=== PATIENT | male | born 1965 | race Caucasian/White ===

== ENCOUNTER 2018-04-04 22:16 | Emergency (ER) | payer OTHER ==
[~2018-04-04] VITALS: Ht 162.6 cm; Wt 65.8 kg
[~2018-04-04 22:16] MED LIST: AMIT25; AMOCLA875 PO; ASPI325; ASPI325EC PO; CAPHYD; CEPH500 PO; CLOP75 PO; CYCL10 PO; ENAL2.5 PO; ENAL5; ERGO400 PO; EZET10; EZET10 PO; FAMO20 PO; FENO145 PO; FENO54; HYDACE5; HYDACE5 PO; HYDCHL25; HYDCHL25 PO; LANS15EC PO; MED MARIJUANA; METO10 PO; METO100ER PO; METO50ER; NYST100TC TOP; OMEP20ER; OMEP20ER PO; OXYACE5T PO; PIOG30; PIOG45 PO; PRAV10 PO; PROCODE120 PO; PROM25 PO; Percocet 7.5-31 EACH PO; RANI150; RANI150 PO; RXHYD5325 PO; RXHYDACE PO; SUCR1 PO; SULTRIDS PO; WATER PILL; [UNRECOGNIZED DRUG - REMARK]; [UNRECOGNIZED DRUG - REMARK]; [UNRECOGNIZED DRUG - REMARK]; [UNRECOGNIZED DRUG - REMARK]
[2018-04-04] MEDS ORDERED: Valium2 MG PO (23:40)
[2018-04-04] MEDS ORDERED: LIDO700A20 TOP (23:40)
[2018-04-04] MEDS ORDERED: Percocet 7.5-31 EACH PO (23:40)
[2018-04-04] MEDS ORDERED: Pepcid40 MG PO (23:40)
== END 2018-04-04 23:55 | disposition home or self-care (01) ==
LOC: ER 22:16
DX: S22.059D Unspecified fracture of T5-T6 vertebra, subsequent encounter for fracture with routine healing (principal); S22.089D Unspecified fracture of T11-T12 vertebra, subsequent encounter for fracture with routine healing; I10 Essential (primary) hypertension; E11.9 Type 2 diabetes mellitus without complications; E78.5 Hyperlipidemia, unspecified; Z88.8 Allergy status to other drugs, medicaments and biological substances; Z79.899 Other long term (current) drug therapy
CPT/HCPCS: 99283

== ENCOUNTER 2021-03-03 14:01 | Inpatient (IN) | payer OTHER ==
[~2021-03-03] VITALS: Ht 162.6 cm; Wt 66.0 kg
[~2021-03-03 14:01] MED LIST changes: +LIDO700A20 TOP; +Pepcid40 MG PO; +Valium2 MG PO
[2021-03-03] MEDS ORDERED: Aspir 8181 MG PO (14:34)
[2021-03-03 14:48] LABS: BASOPHILS ABSOLUTE AUTO 0.12 K/mm3 (0.00-0.23); BASOPHILS PERCENT AUTO 1 % (0-2); EOSINOPHILS ABSOLUTE AUTO 0.26 K/mm3 (0.00-0.68); EOSINOPHILS PERCENT AUTO 3 % (0-6); Hematocrit 48.9 % (37.0-53.0); Hemoglobin 16.3 g/dL (13.5-17.5); IMMATURE GRAN ABSOLUTE AUTO 0.03 K/mm3 (0.00-0.10); IMMATURE GRAN PERCENT AUTO 0 % (0-1); LYMPHOCYTES PERCENT AUTO 19 % (21-46); MONOCYTES ABSOLUTE AUTO 0.94 K/mm3 (0.16-1.47); MONOCYTES PERCENT AUTO 10 % (4-13); Mean Corpuscular HGB 29.3 pg (26.0-34.0); Mean Corpuscular HGB Conc 33.3 g/dL (31.5-36.5); Mean Corpuscular Volume 88 fL (80-100); Mean Platelet Volume 11.9 fL (9.1-12.4); NEUTROPHILS ABSOLUTE AUTO 6.59 K/mm3 (1.96-9.15); NEUTROPHILS PERCENT AUTO 67 % (41-73); Platelet Count 278 K/mm3 (150-400); RDW Coefficient Variation 14.8 % (11.7-14.2); Red Blood Cell Count 5.57 M/mm3 (4.30-5.90); White Blood Cell Count 9.84 K/mm3 (4.00-11.30)
[2021-03-03] MEDS ORDERED: LISI5 PO (15:45)
[2021-03-03 15:58] LABS: Alanine Aminotransfer (ALT/SGP 33 U/L (12-78); Albumin, Blood 2.8 g/dL (3.4-5.0); Albumin/Globulin Ratio 0.8 (0.8-1.8); Alk Phos 77 U/L (50-136); Anion Gap 7 mmol/L (6-16); Aspartate Aminotrans (AST/SGOT 25 U/L (12-37); Bilirubin, Total 0.7 mg/dL (0.1-1.0); Blood Urea Nitrogen 11 mg/dL (8-24); Bun/Creatinine Ratio 10.9 (12.0-20.0); CO2, Blood 24 mmol/L (21-32); Chloride, Blood 108 mmol/L (98-108); Creatinine, Blood 1.01 mg/dL (0.60-1.20); Ethanol (Alcohol), Blood, Med <3 mg/dL; Globulin, Blood 3.4 g/dL (2.2-4.0); Glomerular Filtration Rate >60 (60-); Glucose, Blood 82 mg/dL (70-99); HDL Cholesterol 32 mg/dL (>39); LDL Direct Measurement 154 mg/dL (0-130); Potassium, Blood 3.4 mmol/L (3.5-5.5); Sodium, Blood 139 mmol/L (136-145); Total Protein, Blood 6.2 g/dL (6.4-8.2)
--- NOTE | 2021-03-03 18:46 | NUR ---
SHIFT SUMMARY. PATIENT IS ALERT AND ORIENTED X3. PATIENT WAS ADMITTED FOR A CVA AND LEFT SIDED WEAKNESS. PATIENT WAS ADMITTED AROUND 1730. PATIENT HAS HAD ADMISSION DONE AND HAS BEEN ORIENTED TO ROOM AND CALL LIGHT. PATIENT IS CURRENTLY RESTING IN ROOM. VITAL SIGNS REVIEWED. WILL CONTINUE TO MONITOR UNTIL SHIFT CHANGE.
[2021-03-04 04:59] LABS: BASOPHILS PERCENT AUTO 1 % (0-2); EOSINOPHILS ABSOLUTE AUTO 0.36 K/mm3 (0.00-0.68); EOSINOPHILS PERCENT AUTO 4 % (0-6); Hemoglobin 16.8 g/dL (13.5-17.5); IMMATURE GRAN ABSOLUTE AUTO 0.02 K/mm3 (0.00-0.10); IMMATURE GRAN PERCENT AUTO 0 % (0-1); LYMPHOCYTES ABSOLUTE AUTO 1.98 K/mm3 (0.84-5.20); LYMPHOCYTES PERCENT AUTO 24 % (21-46); MONOCYTES ABSOLUTE AUTO 0.85 K/mm3 (0.16-1.47); MONOCYTES PERCENT AUTO 10 % (4-13); Mean Corpuscular HGB 29.1 pg (26.0-34.0); Mean Corpuscular HGB Conc 33.6 g/dL (31.5-36.5); Mean Corpuscular Volume 87 fL (80-100); Mean Platelet Volume 11.2 fL (9.1-12.4); NEUTROPHILS ABSOLUTE AUTO 5.03 K/mm3 (1.96-9.15); NEUTROPHILS PERCENT AUTO 60 % (41-73); Platelet Count 247 K/mm3 (150-400); RDW Coefficient Variation 14.7 % (11.7-14.2); RDW Standard Deviation 47.1 fL (35.1-46.3); Red Blood Cell Count 5.77 M/mm3 (4.30-5.90); White Blood Cell Count 8.34 K/mm3 (4.00-11.30)
--- NOTE | 2021-03-04 05:26 | NUR ---
Pt AAOx3, denies pain, SOB, or other discomforts. Pt calls appropriately. Pt sleeping most of shift with no signs of symptoms of discomfort. Pt NPO for swallow eval. Pt has no defecits neurologically, tele is SR/ST Plan: NPO for swallow eval. Pt also to have ECHO, CTA of head and neck.
[2021-03-04 05:28] LABS: Anion Gap 9 mmol/L (6-16); Blood Urea Nitrogen 12 mg/dL (8-24); CO2, Blood 25 mmol/L (21-32); Calcium, Blood 9.6 mg/dL (8.5-10.1); Chloride, Blood 105 mmol/L (98-108); Glomerular Filtration Rate >60 (60-); Glucose, Blood 76 mg/dL (70-99); Potassium, Blood 3.5 mmol/L (3.5-5.5); Sodium, Blood 139 mmol/L (136-145)
--- NOTE | 2021-03-04 17:04 | NUR ---
PATIENT TRANSPORTED OFF OF UNIT VIA STRETCHER FOR CT SCAN NO COMPLICATIONS PRIOR TO OR AT TIME OF TRANSPORT
--- NOTE | 2021-03-04 17:33 | NUR ---
PATIENT RETURNED TO UNIT/ROOM ASSISTED BACK TO BED REMAINS ALERT NO C/O PAIN OR DISCMFORT NO S/S DISTRESS NOTED
--- NOTE | 2021-03-05 04:38 | NUR ---
PATIENT IS A&OX3. DENIES PAIN OR DISCOMFORT. COMPLIANT WITH MEDS. ADLS PROVIDED. SAFETY MEASURES IN PLACE. WILL CONTINUE TO MONITOR.
[2021-03-05 05:45] LABS: Albumin, Blood 3.2 g/dL (3.4-5.0); Anion Gap 8 mmol/L (6-16); Blood Urea Nitrogen 15 mg/dL (8-24); Bun/Creatinine Ratio 14.7 (12.0-20.0); CO2, Blood 24 mmol/L (21-32); Calcium, Blood 9.4 mg/dL (8.5-10.1); Chloride, Blood 105 mmol/L (98-108); Creatinine, Blood 1.02 mg/dL (0.60-1.20); Glomerular Filtration Rate >60 (60-); Glucose, Blood 94 mg/dL (70-99); Phosphorus, Blood 2.9 mg/dL (2.5-4.9); Potassium, Blood 3.5 mmol/L (3.5-5.5); Sodium, Blood 137 mmol/L (136-145)
--- NOTE | 2021-03-05 18:53 | NUR ---
a+o, visitor here, call light in reach, saline locked, rm air,compliant with care, will continue to monitor and treat until share bsr with noc nurse
--- NOTE | 2021-03-06 05:34 | NUR ---
Pt is AAOx3, denies pain, SOB, or other discomforts. Pt calls appropriatey, has left sided weakess. BA on for safety. Plan: [facility] POC, family to meet with MD to discuss rat exterminator care.
--- NOTE | 2021-03-06 16:35 | NUR ---
SHIFT SUMMARY NO ACUTE CHANGES THIS SHIFT, A&O, VSS, RA. LEFT SIDED WEAKNESS/FLACCID ARM CONTINUES. PT WORKING c PT/OT. AWAITING IRU APPROVAL/PLACEMENT. PT DENIES ANY PAIN OR DISTRESS. PT BECOMES VERY EMOTIONAL REGARDING CURRENT CONDITION. GOOD ORAL INTAKE, NO PROBLEMS c SWALLOWING NOTED THIS SHIFT. PT IS CURRENTLY RESTING IN BED c CALL LIGHT WITHIN REACH. CALLS APPROPRIATELY.
--- NOTE | 2021-03-07 04:17 | NUR ---
SHIFT SUMMARY RECEIVED PATIENT AWAKE IN BED. PATIENT IS A&OXV. PATIENT IS ON RA, VSS. PATIENT IS MED COMPLIANT.SAFETY MEASURES IN PLACE. WILL CONTINUE TO MONITOR.
--- NOTE | 2021-03-07 18:52 | NUR ---
SHIFT SUMMARY: PT A/O X3 MAX ASSIST WITH TX TO CHAIR. PT FLACC ON LEFT SIDE. PT HAD NO ACUTE CHANGES THIS SHIFT AND PLAN IS TO GO TO SNF.
--- NOTE | 2021-03-08 04:53 | NUR ---
Pt AAOx3, pt denies pain, SOB, or other discomforts. Plan: Discharge to SNF when bed available, encourage pt to wear gait belt and arm sling when ambulating
--- NOTE | 2021-03-08 17:48 | NUR ---
END OF SHIFT SUMMARY: PATIENT DENIED PAIN THROUGHOUT SHIFT. PATIENT UP TO THE BSC WITH STAFF AND WORKED WITH PT AND OT. PATIENT IS VERY INTERACTIVE WITH HIS CARE AND THERAPIES. PATIENT IS EMOTIONAL AND TEARFUL AT TIMES IN REGARDS TO HIS CURRENT SITUATION AND CHANGES. PROVIDED SUPPORT AND ENCOURAGEMENT. PATIENT HAS AN ADEQUATE APPETITE. NO DIFFICULTY SWALLOWING NOTED. PATIENT FOLLOWS COMMANDS AND ANSWERS QUESTIONS APPROPRIATELY.
--- NOTE | 2021-03-09 04:45 | NUR ---
PT IS A&OX4, ABLE TO MAKE NEEDS KNOWN. PT IS MEDICATION COMPLIANT PT IS COMPLIANT WITH MEDS, SAFETY MEASURES IN PLACE. WILL CONTINUE TO MONITOR PATIENT
[2021-03-09 12:24] LABS: SARS-Cov-2 (COVID-19) PCR, MMC POSITIVE (NEGATIVE)
--- NOTE | 2021-03-09 14:13 | NUR ---
dr requested 2nd covid test to verify positive result, ER said they could not test a pt on another floor and suggested redoing the original test
--- NOTE | 2021-03-09 18:44 | NUR ---
pt waiting for pickup [facility], called report and faxed information r/pt, will continue to monitor and treat until either pt is picked up or share report with noc nurse
== END 2021-03-09 19:20 | DRG 64 ==
LOC: ER 14:01 → MEDS 15:57
PROVIDERS: Internal Medicine; Student in an Organized Health Care Education/Training Program; ADMIT Internal Medicine
DX: I63.9 Cerebral infarction, unspecified (principal); U07.1 COVID-19; G81.94 Hemiplegia, unspecified affecting left nondominant side; R64 Cachexia; Q21.1 Atrial septal defect; R29.706 NIHSS score 6; R47.1 Dysarthria and anarthria; R29.810 Facial weakness; I10 Essential (primary) hypertension; F17.210 Nicotine dependence, cigarettes, uncomplicated; F10.11 Alcohol abuse, in remission; I73.9 Peripheral vascular disease, unspecified; E78.5 Hyperlipidemia, unspecified; B18.2 Chronic viral hepatitis C; R91.1 Solitary pulmonary nodule; R73.9 Hyperglycemia, unspecified; S41.112A Laceration without foreign body of left upper arm, initial encounter; X58.XXXA Exposure to other specified factors, initial encounter; Z66 Do not resuscitate; Z95.820 Peripheral vascular angioplasty status with implants and grafts; Z88.8 Allergy status to other drugs, medicaments and biological substances; Z79.82 Long term (current) use of aspirin; Z68.27 Body mass index [BMI] 27.0-27.9, adult
CPT/HCPCS: 36415; 70450; 70496; 70498; 70551; 80048; 80053; 80069; 82947; 83036; 83718; 83721; 85025; 92526; 92610; 93005; 93010; 93306; 97110; 97112; 97162; 97165; 97530; 97535; 99285-25; A9270; G0480; J1650; J2405; Q9967; U0004

== ENCOUNTER → 2021-03-13 | Outpatient (CLI) | payer OTHER ==
[~2021-03-13] MED LIST changes: +Aspir 8181 MG PO; +LIPITOR80 MG PO; +LISI5 PO
[2021-03-13 13:20] LABS: BASOPHILS ABSOLUTE AUTO 0.09 K/mm3 (0.00-0.23); BASOPHILS PERCENT AUTO 1 % (0-2); EOSINOPHILS ABSOLUTE AUTO 0.21 K/mm3 (0.00-0.68); EOSINOPHILS PERCENT AUTO 2 % (0-6); Hematocrit 46.6 % (37.0-53.0); Hemoglobin 15.7 g/dL (13.5-17.5); IMMATURE GRAN ABSOLUTE AUTO 0.03 K/mm3 (0.00-0.10); IMMATURE GRAN PERCENT AUTO 0 % (0-1); LYMPHOCYTES ABSOLUTE AUTO 1.44 K/mm3 (0.84-5.20); LYMPHOCYTES PERCENT AUTO 16 % (21-46); MONOCYTES ABSOLUTE AUTO 0.91 K/mm3 (0.16-1.47); MONOCYTES PERCENT AUTO 10 % (4-13); Mean Corpuscular HGB 29.2 pg (26.0-34.0); Mean Corpuscular HGB Conc 33.7 g/dL (31.5-36.5); Mean Corpuscular Volume 87 fL (80-100); NEUTROPHILS ABSOLUTE AUTO 6.55 K/mm3 (1.96-9.15); NEUTROPHILS PERCENT AUTO 71 % (41-73); Platelet Count 226 K/mm3 (150-400); RDW Coefficient Variation 14.6 % (11.7-14.2); Red Blood Cell Count 5.37 M/mm3 (4.30-5.90); White Blood Cell Count 9.23 K/mm3 (4.00-11.30)
[2021-03-13 13:27] LABS: Mean Platelet Volume 13.4 fL (9.1-12.4)
[2021-03-13 13:53] LABS: Alanine Aminotransfer (ALT/SGP 42 U/L (12-78); Albumin, Blood 3.2 g/dL (3.4-5.0); Albumin/Globulin Ratio 0.8 (0.8-1.8); Alk Phos 92 U/L (50-136); Anion Gap 7 mmol/L (6-16); Aspartate Aminotrans (AST/SGOT 21 U/L (12-37); Bilirubin, Total 0.7 mg/dL (0.1-1.0); Blood Urea Nitrogen 15 mg/dL (8-24); Bun/Creatinine Ratio 17.8 (12.0-20.0); CO2, Blood 22 mmol/L (21-32); Calcium, Blood 9.2 mg/dL (8.5-10.1); Chloride, Blood 108 mmol/L (98-108); Creatinine, Blood 0.84 mg/dL (0.60-1.20); Globulin, Blood 3.8 g/dL (2.2-4.0); Glomerular Filtration Rate >60 (60-); Glucose, Blood 169 mg/dL (70-99); Potassium, Blood 3.6 mmol/L (3.5-5.5); Sodium, Blood 137 mmol/L (136-145)
== END | disposition home or self-care (01) ==
LOC: EDSTATUS 10:51 → LAB RH 12:26
PROVIDERS: Internal Medicine
DX: U07.1 COVID-19 (principal)
CPT/HCPCS: 80053; 85025

== ENCOUNTER → 2021-03-21 | Outpatient (CLI) | payer OTHER ==
[2021-03-21 13:55] LABS: BASOPHILS PERCENT AUTO 1 % (0-2); EOSINOPHILS ABSOLUTE AUTO 0.16 K/mm3 (0.00-0.68); EOSINOPHILS PERCENT AUTO 2 % (0-6); Hematocrit 46.3 % (37.0-53.0); Hemoglobin 15.4 g/dL (13.5-17.5); IMMATURE GRAN ABSOLUTE AUTO 0.04 K/mm3 (0.00-0.10); IMMATURE GRAN PERCENT AUTO 0 % (0-1); LYMPHOCYTES ABSOLUTE AUTO 1.62 K/mm3 (0.84-5.20); LYMPHOCYTES PERCENT AUTO 18 % (21-46); MONOCYTES ABSOLUTE AUTO 1.01 K/mm3 (0.16-1.47); MONOCYTES PERCENT AUTO 11 % (4-13); Mean Corpuscular HGB 29.4 pg (26.0-34.0); Mean Corpuscular HGB Conc 33.3 g/dL (31.5-36.5); Mean Corpuscular Volume 89 fL (80-100); Mean Platelet Volume 12.4 fL (9.1-12.4); NEUTROPHILS ABSOLUTE AUTO 6.24 K/mm3 (1.96-9.15); NEUTROPHILS PERCENT AUTO 68 % (41-73); Platelet Count 364 K/mm3 (150-400); RDW Coefficient Variation 14.5 % (11.7-14.2); RDW Standard Deviation 46.8 fL (35.1-46.3); Red Blood Cell Count 5.23 M/mm3 (4.30-5.90); White Blood Cell Count 9.17 K/mm3 (4.00-11.30)
[2021-03-21 16:23] LABS: Alanine Aminotransfer (ALT/SGP 29 U/L (12-78); Albumin, Blood 3.1 g/dL (3.4-5.0); Albumin/Globulin Ratio 0.7 (0.8-1.8); Alk Phos 104 U/L (50-136); Anion Gap 6 mmol/L (6-16); Aspartate Aminotrans (AST/SGOT 19 U/L (12-37); Bilirubin, Total 0.6 mg/dL (0.1-1.0); Blood Urea Nitrogen 12 mg/dL (8-24); Bun/Creatinine Ratio 15.6 (12.0-20.0); CO2, Blood 27 mmol/L (21-32); Calcium, Blood 9.8 mg/dL (8.5-10.1); Chloride, Blood 104 mmol/L (98-108); Creatinine, Blood 0.77 mg/dL (0.60-1.20); Globulin, Blood 4.6 g/dL (2.2-4.0); Glomerular Filtration Rate >60 (60-); Glucose, Blood 101 mg/dL (70-99); Potassium, Blood 3.8 mmol/L (3.5-5.5); Sodium, Blood 137 mmol/L (136-145); Total Protein, Blood 7.7 g/dL (6.4-8.2)
== END | disposition home or self-care (01) ==
LOC: EDSTATUS 10:52 → LAB RH 12:18
PROVIDERS: Internal Medicine
DX: U07.1 COVID-19 (principal)
CPT/HCPCS: 80053; 85025

== ENCOUNTER → 2021-03-28 | Outpatient (CLI) | payer OTHER ==
[2021-03-28 12:38] LABS: Hematocrit 49.7 % (37.0-53.0); Hemoglobin 16.5 g/dL (13.5-17.5); Mean Corpuscular HGB 28.8 pg (26.0-34.0); Mean Corpuscular HGB Conc 33.2 g/dL (31.5-36.5); Mean Corpuscular Volume 87 fL (80-100); Mean Platelet Volume 12.3 fL (9.1-12.4); Platelet Count 349 K/mm3 (150-400); RDW Coefficient Variation 14.3 % (11.7-14.2); RDW Standard Deviation 45.6 fL (35.1-46.3); Red Blood Cell Count 5.72 M/mm3 (4.30-5.90); White Blood Cell Count 8.72 K/mm3 (4.00-11.30)
[2021-03-28 13:04] LABS: Alanine Aminotransfer (ALT/SGP 43 U/L (12-78); Albumin, Blood 3.6 g/dL (3.4-5.0); Albumin/Globulin Ratio 0.8 (0.8-1.8); Alk Phos 121 U/L (50-136); Anion Gap 6 mmol/L (6-16); Aspartate Aminotrans (AST/SGOT 30 U/L (12-37); Bilirubin, Total 0.6 mg/dL (0.1-1.0); Blood Urea Nitrogen 13 mg/dL (8-24); Bun/Creatinine Ratio 15.1 (12.0-20.0); CO2, Blood 27 mmol/L (21-32); Calcium, Blood 9.7 mg/dL (8.5-10.1); Chloride, Blood 105 mmol/L (98-108); Creatinine, Blood 0.86 mg/dL (0.60-1.20); Globulin, Blood 4.3 g/dL (2.2-4.0); Glomerular Filtration Rate >60 (60-); Glucose, Blood 93 mg/dL (70-99); Sodium, Blood 138 mmol/L (136-145); Total Protein, Blood 7.9 g/dL (6.4-8.2)
== END | disposition home or self-care (01) ==
LOC: LAB RH 10:49 → EDSTATUS 10:53
PROVIDERS: Internal Medicine
DX: U07.1 COVID-19 (principal)
CPT/HCPCS: 80053; 85027

== ENCOUNTER 2021-04-18 12:13 | Emergency (ER) | payer OTHER ==
[~2021-04-18] VITALS: Ht 162.6 cm; Wt 63.5 kg
[~2021-04-18 12:13] MED LIST changes: -LIPITOR80 MG PO
[2021-04-18 14:02] LABS: BASOPHILS ABSOLUTE AUTO 0.13 K/mm3 (0.00-0.23); BASOPHILS PERCENT AUTO 1 % (0-2); EOSINOPHILS ABSOLUTE AUTO 0.29 K/mm3 (0.00-0.68); EOSINOPHILS PERCENT AUTO 3 % (0-6); Hematocrit 48.9 % (37.0-53.0); Hemoglobin 16.1 g/dL (13.5-17.5); IMMATURE GRAN ABSOLUTE AUTO 0.03 K/mm3 (0.00-0.10); IMMATURE GRAN PERCENT AUTO 0 % (0-1); LYMPHOCYTES PERCENT AUTO 25 % (21-46); MONOCYTES ABSOLUTE AUTO 0.82 K/mm3 (0.16-1.47); MONOCYTES PERCENT AUTO 9 % (4-13); Mean Corpuscular HGB 29.3 pg (26.0-34.0); Mean Corpuscular HGB Conc 32.9 g/dL (31.5-36.5); Mean Corpuscular Volume 89 fL (80-100); Mean Platelet Volume 12.1 fL (9.1-12.4); NEUTROPHILS ABSOLUTE AUTO 5.53 K/mm3 (1.96-9.15); NEUTROPHILS PERCENT AUTO 61 % (41-73); Platelet Count 283 K/mm3 (150-400); RDW Coefficient Variation 14.9 % (11.7-14.2); RDW Standard Deviation 49.6 fL (35.1-46.3)
[2021-04-18 14:30] LABS: Alanine Aminotransfer (ALT/SGP 58 U/L (12-78); Albumin, Blood 3.8 g/dL (3.4-5.0); Albumin/Globulin Ratio 0.9 (0.8-1.8); Alk Phos 114 U/L (50-136); Anion Gap 6 mmol/L (6-16); Aspartate Aminotrans (AST/SGOT 37 U/L (12-37); Bilirubin, Total 0.5 mg/dL (0.1-1.0); Blood Urea Nitrogen 15 mg/dL (8-24); CO2, Blood 27 mmol/L (21-32); Calcium, Blood 9.5 mg/dL (8.5-10.1); Chloride, Blood 107 mmol/L (98-108); Globulin, Blood 4.3 g/dL (2.2-4.0); Glomerular Filtration Rate >60 (60-); Glucose, Blood 89 mg/dL (70-99); Potassium, Blood 4.1 mmol/L (3.5-5.5); Sodium, Blood 140 mmol/L (136-145); Total Protein, Blood 8.1 g/dL (6.4-8.2)
[2021-04-18] MEDS ORDERED: LIPITOR80 MG PO (15:16)
== END 2021-04-18 15:47 | disposition home or self-care (01) ==
LOC: ER 12:13
PROVIDERS: Physician Assistant
DX: R47.1 Dysarthria and anarthria (principal); I69.354 Hemiplegia and hemiparesis following cerebral infarction affecting left non-dominant side; I10 Essential (primary) hypertension; E11.9 Type 2 diabetes mellitus without complications; E78.5 Hyperlipidemia, unspecified; F17.200 Nicotine dependence, unspecified, uncomplicated; Z88.8 Allergy status to other drugs, medicaments and biological substances; Z79.82 Long term (current) use of aspirin
CPT/HCPCS: 36415; 70450; 80053; 85025; 93005; 93010; 99285-25

== ENCOUNTER 2023-11-14 21:51 | Inpatient (IN) | payer MEDICARE, OTHER ==
[~2023-11-14] VITALS: Ht 170.2 cm; Wt 59.3 kg
[~2023-11-14 21:51] MED LIST changes: +EPINEPhrine HCl 0.1 MG/ML 10ML SYR IV ONE; +LIPITOR80 MG PO; +Sodium Bicarb 8.4% 50 mEq Syringe IV ONE
[2023-11-14 22:10] LABS: Calcium, Ionized (POC) 1.23 mmol/L (1.10-1.46); Chloride (POC) 111 mmol/L (98-108); Creatinine (POC) 1.3 mg/dL (0.8-1.3); Glucose (ISTAT POC) 239 mg/dL (70-99); Hemoglobin (POC) 12.9 g/dL (13.5-17.5); Potassium (POC) 5.1 mmol/L (3.5-5.5); Sodium (POC) 140 mmol/L (135-148); Total CO2 (POC) 13 mmol/L (21-32)
[2023-11-14] MEDS ORDERED: NS 1,000 ML IV ONE (22:15)
[2023-11-14 22:26] LABS: Hematocrit 42.8 % (37.0-53.0); Hemoglobin 11.6 g/dL (13.5-17.5); Mean Corpuscular HGB 19.9 pg (26.0-34.0); Mean Corpuscular HGB Conc 27.1 g/dL (31.5-36.5); Mean Corpuscular Volume 74 fL (80-100); NRBC ABSOLUTE 0.16 K/mm3 (0.00-0.02); NRBC Auto 2.5 /100 WBC (0.0-0.2); Platelet Count 240 K/mm3 (150-400); RDW Coefficient Variation 21.6 % (11.7-14.2); Red Blood Cell Count 5.82 M/mm3 (4.30-5.90); White Blood Cell Count 6.28 K/mm3 (4.00-11.30)
[2023-11-14] MEDS ORDERED: FentaNYL Citrate 50 MCG/ML 2 ML Injection ONE (22:29)
[2023-11-14 22:36] LABS: Albumin, Blood 3.3 g/dL (3.4-5.0); Albumin/Globulin Ratio 0.8 (0.8-1.8); Bilirubin, Total 0.3 mg/dL (0.1-1.0); Bun/Creatinine Ratio 15.1 (12.0-20.0); Calcium, Blood 9.3 mg/dL (8.5-10.1); Creatinine, Blood 1.06 mg/dL (0.60-1.20); Globulin, Blood 4.1 g/dL (2.2-4.0); Total Protein, Blood 7.4 g/dL (6.4-8.2)
[2023-11-14 22:49] LABS: BAND PERCENT MAN 3 % (0-8); BASOPHILS PERCENT MAN 0 % (0-2); EOSINOPHILS ABSOLUTE MAN 0.12 K/mm3 (0.00-0.68); EOSINOPHILS PERCENT MAN 2 % (0-6); LYMPHOCYTES % ATYPICAL MANUAL 3 % (0-0); LYMPHOCYTES ABSOLUTE MAN 4.27 K/mm3 (0.84-5.20); LYMPHOCYTES PERCENT MAN 65 % (21-46); METAMYELOCYTE ABSOLUTE MAN 0.25 K/mm3 (0.00-0.00); METAMYELOCYTE PERCENT MAN 4 % (0-0); MONOCYTES ABSOLUTE MAN 0.18 K/mm3 (0.16-1.47); MONOCYTES PERCENT MAN 3 % (4-13); MYELOCYTE ABSOLUTE MAN 0.37 K/mm3 (0.00-0.00); MYELOCYTE PERCENT MAN 6 % (0-0); NEUTROPHILS ABSOLUTE MAN 1.06 K/mm3 (1.96-9.15); SEG NEUTROPHILS PERCENT MAN 14 % (41-73); TOTAL CELLS COUNTED 100
[2023-11-14] MEDS ORDERED: fentaNYL citrate 1,000 MCG in NS 80 ML IV SCH (23:00)
[2023-11-14] MEDS ORDERED: Midazolam HCl 1MG / ML 2ML Vial IV ONE (23:25)
[2023-11-14] MEDS ORDERED: Midazolam HCl 1MG / ML 2ML Vial ONE (23:25)
[2023-11-14] MEDS ORDERED: Sodium Bicarb 8.4% Inj 150 MEQ in Dextrose 5% 1,000 ML IV SCH (23:45)
[2023-11-14] MEDS ORDERED: levETIRAcetam 1,000 MG in NS 100 ML IV ONE (23:45)
[2023-11-14 23:59] LABS: PCO2 Arterial 27.3 mmHg (35-45); PO2 Arterial 360 mmHg (80-100)
[2023-11-15] VITALS (7 sets, daily range): BP systolic 100–151; BP diastolic 54–71
[2023-11-15 00:01] LABS: pH Blood Arterial 6.95 (7.35-7.45)
[2023-11-15] MEDS ORDERED: propofoL 100 ML IV ONE (00:02)
[2023-11-15] MEDS ORDERED: Midazolam HCl 1MG / ML 2ML Vial IV PRN (00:20)
[2023-11-15] MEDS ORDERED: Acetaminophen 325 MG TABLET PO PRN (00:30)
[2023-11-15] MEDS ORDERED: Acetaminophen 650 MG Supp PR PRN ×2 (00:30→14:40)
[2023-11-15] MEDS ORDERED: Ampicillin Sod/Sulbactam Sod 3 GM in NS 100 ML IV SCH (00:35)
[2023-11-15] MEDS ORDERED: propofoL 100 ML IV PRN (00:35)
--- NOTE | 2023-11-15 00:55 | NUR ---
Pt arrives to unit from ER. Pt not responsive to verbal or painful stimuli. Seizure like activity observed- pt eyes opening and closing w/ upward gaze, pupils unequal and unresponsive to light. Pt face tremulous and muscle spasming observed to right side. Periodic posturing. Left upper arm appears contracted. Mild mottling to left lower extremity. Pt on vent, settings; ac/vc 18/10/450/30% FIO2. Pt on continuous site monitor, nsr rate of 90s. Bp monitored via art line, stable at this time. Systolic 130s. Propofol, epinephrine, and fentanyl infusing- see cc flowsheet for details. Temp probe goodrich placed and draining yellow urine to gravity. OG connected to low intermittent suction.
[2023-11-15] MEDS ORDERED: NS 250 ML IV PRN (01:20)
[2023-11-15 01:42] LABS: Beta-hydroxybutyrate 2.7 mg/dL (0.2-2.8)
[2023-11-15 02:45] LABS: Source, Urine Foley catheter
[2023-11-15 02:50] LABS: Bilirubin, Urine Neg (Neg); Blood, Urine 1+ (Neg); Glucose Qualitative, Urine Neg (Neg); Ketones, Urine Neg (Neg); Leukocyte Esterase, Urine 1+ (Neg); Nitrite, Urine Neg (Neg); Protein, Urine 2+ (Neg); Urobilinogen, Urine NORM (Normal)
[2023-11-15 03:00] LABS: Appearance, Urine Hazy (Clear); Color, Urine Yellow (P-Yellow)
[2023-11-15 03:02] LABS: Bacteria Mod /hpf; Red Blood Cells, Urine 0-2 /hpf (0-2); Squamous Epithelial Cells Few /hpf (Few); White Blood Cells, Urine 0-2 /hpf (0-5)
[2023-11-15 03:53] LABS: BASOPHILS ABSOLUTE AUTO 0.17 K/mm3 (0.00-0.23); BASOPHILS PERCENT AUTO 0 % (0-2); EOSINOPHILS ABSOLUTE AUTO 0.02 K/mm3 (0.00-0.68); EOSINOPHILS PERCENT AUTO 0 % (0-6); Hematocrit 34.9 % (37.0-53.0); Hemoglobin 10.1 g/dL (13.5-17.5); IMMATURE GRAN ABSOLUTE AUTO 0.87 K/mm3 (0.00-0.10); IMMATURE GRAN PERCENT AUTO 2 % (0-1); LYMPHOCYTES ABSOLUTE AUTO 1.07 K/mm3 (0.84-5.20); LYMPHOCYTES PERCENT AUTO 3 % (21-46); MONOCYTES ABSOLUTE AUTO 3.02 K/mm3 (0.16-1.47); MONOCYTES PERCENT AUTO 8 % (4-13); Mean Corpuscular HGB 20.2 pg (26.0-34.0); Mean Corpuscular HGB Conc 28.9 g/dL (31.5-36.5); Mean Corpuscular Volume 70 fL (80-100); NEUTROPHILS ABSOLUTE AUTO 34.42 K/mm3 (1.96-9.15); NEUTROPHILS PERCENT AUTO 87 % (41-73); NRBC ABSOLUTE 0.07 K/mm3 (0.00-0.02); NRBC Auto 0.2 /100 WBC (0.0-0.2); Platelet Count 348 K/mm3 (150-400); RDW Coefficient Variation 21.2 % (11.7-14.2); RDW Standard Deviation 51.9 fL (35.1-46.3); Red Blood Cell Count 4.99 M/mm3 (4.30-5.90); White Blood Cell Count 39.57 K/mm3 (4.00-11.30)
[2023-11-15] MEDS ORDERED: Insulin Regular 100 UNIT/ML 10ML Vial SC SCH (04:00)
[2023-11-15] MEDS ORDERED: Hydrogen Peroxide 1.5 % Solution MT SCH (04:00)
[2023-11-15 04:17] LABS: Albumin/Globulin Ratio 0.9 (0.8-1.8); Bilirubin, Total 0.8 mg/dL (0.1-1.0); Bun/Creatinine Ratio 11.5 (12.0-20.0); Calcium, Blood 8.1 mg/dL (8.5-10.1); Creatinine, Blood 1.82 mg/dL (0.60-1.20); Globulin, Blood 3.5 g/dL (2.2-4.0); Magnesium, Blood 2.6 mg/dL (1.6-2.4); Phosphorus, Blood 6.5 mg/dL (2.5-4.9); Potassium, Blood 3.4 mmol/L (3.5-5.5); Total Protein, Blood 6.5 g/dL (6.4-8.2)
[2023-11-15] MEDS ORDERED: Potassium Chloride 40 MEQ in NS 250 ML IV ONE (04:55)
[2023-11-15 05:04] LABS: Influenza A, PCR NEGATIVE (NEGATIVE); Influenza B, PCR NEGATIVE (NEGATIVE); Resp Syncytial Virus, PCR NEGATIVE (NEGATIVE); SARS-Cov-2 (COVID-19) PCR, MMC NEGATIVE (NEGATIVE)
[2023-11-15 05:07] LABS: PCO2 Arterial 28.9 mmHg (35-45); PO2 Arterial 146 mmHg (80-100)
[2023-11-15 05:31] LABS: U Amphetamine Screen DETECTED; U Barbituate Screen Not Detected; U Benzodiazapine Screen Not Detected; U Buprenorphine Screen Not Detected; U Cannabinoids Screen DETECTED; U Cocaine Screen Not Detected; U Methadone Screen Not Detected; U Methamphetamine Screen DETECTED; U Opiates Screen Not Detected; U Oxycodone Screen Not Detected; U Phencyclidine Screen Not Detected
[2023-11-15] MEDS ORDERED: Cetylpyridinium Chloride 1 EA MISC MT SCH (08:00)
[2023-11-15] MEDS ORDERED: levETIRAcetam 500 MG in NS 100 ML IV SCH (10:00)
[2023-11-15] MEDS ORDERED: Promethazine HCl 25 MG Supp PR PRN (14:40)
[2023-11-15] MEDS ORDERED: Ondansetron HCl 2 MG / ML 2ML Vial IV PRN (14:40)
[2023-11-15] MEDS ORDERED: Scopolamine Hydrobromide Patch TOP PRN (14:40)
[2023-11-15] MEDS ORDERED: Haloperidol Lactate Inj. 5 MG/ML Injection IV PRN (14:40)
[2023-11-15] MEDS ORDERED: Morphine Sulfate 10 MG/ML 1MLSYR IV PRN (14:45)
[2023-11-15] MEDS ORDERED: LORazepam 2 MG/ML 1ML Injection IV PRN ×2 (14:45→14:50)
[2023-11-15] MEDS ORDERED: Atropine Sulfate 1% Opth Soln 2ML BTL SL PRN (14:45)
[2023-11-15] MEDS ORDERED: Morphine Sulfate 20 MG/1ML 1 ML Oral Syringe SL PRN (14:45)
[2023-11-15] MEDS ORDERED: LORazepam 1 MG Tab PO PRN ×2 (14:45→14:50)
[2023-11-15] MEDS ORDERED: HYDROmorphone HCl/Pf 1MG SYR IV PRN (14:50)
--- NOTE | 2023-11-15 15:10 | NUR ---
COMFORT CARE AFTER MULTIPLE DISCUSSION WITH PT FAMILY AND SPOUSE BY THIS RN, DR PRO, AND MARÍA HOBSON, PT TO BE MADE COMFORT CARE AND EXTUBATED. PT EXTUBATED AT 1503 BY RT PRISCILLA. PT MED WITH ATIVAN AND MORPHINE PER EMAR. ALL GTT'S DC'D. PT FAMILY AT BEDSIDE. WILL CONTINUE TO MONITOR.
--- NOTE | 2023-11-15 15:17 | NUR ---
CASE CONFERENCE: PT BEING MADE COMFORT CARE, HIS FAMILY V/U THAT THE PT'S PROGNOSIS IS EXTREMELY POOR. BOTH PT'S ESTRANGED , DAUGHTERS AND BROTHERS MADE THE DECISION TOGETHER FOR TERMINAL WITHDRAWAL. RT NOTIFIED, COMFORT ORDERS PLACED BY DR. PRO. BEDSIDE RN READY TO ADMINISTER MEDICATION FOR TERMINAL WITHDRAWAL. FAMILY REMAIN TEARFUL, BUT IN AGREEMENT WITH COMFORT CARE.
--- NOTE | 2023-11-15 16:10 | NUR ---
"Spiritual Care | Comfort Care | EOL Education Pt. is extubated approx 1500. Prayed a blessing over the pt. and then stayed and facilitated a life review with family at bedside. Considered matters of kalyani, belief, and the family. Scripture is read. Family is experiencing anticipatory grief. Listen with empathy and pastoral care. Provided ice water to the family at bedside as the nursing staff prepares Pt. to be transferred to room 306. Will remain available to the family. Family has determined that when the Pt. passes they would like [facility] home in [place] to be their home."
--- NOTE | 2023-11-15 16:50 | NUR ---
TRANSFER TO MEDICAL REPORT CALLED, ALL QUESTIONS ANSWERED. PT TAKEN TO ROOM 306 VIA BED AT 1630. ALL PT BELONGINGS SENT WITH PT. PT SPOUSE REMAINED AT BEDSIDE UP TO NEW ROOM.
--- NOTE | 2023-11-15 18:01 | NUR ---
"Spiritual Care Follow up | Comfort Care Room Transfer Pt. is moved form ICU, and is not responsive, but lingering on comfort care. Family members are present. One of them (Pts. child) displays evidence of impatience, the Spouse who is at bedside is committed to be with the Pt. till the end. Seek to normalize the Pt./family experience. Spouse verbalized gratitude for the spiritual care follow up."
--- NOTE | 2023-11-15 18:11 | NUR ---
RN NOTE MR MONDRAGON WAS TRANSFERED FROM ICU TO MEDICAL UNIT AT 1635HRS. WAS PRESENT UPON TRANSFER AND REMAINS AT BEDSIDE. MR MONDRAGON HAD A LOT OF ORAL SECRETIONS UPON TRANSFER, ORAL SUCTIONING WITH THICK SPUTUM AND ATROPINE SROPS GIVEN X 2 DOSES WITH SOME IMPROVEMENT. PT HAS EYES OPEN, GAZE UPWARDS AND STARING. MERAZ CATHETER IN PLACE FOR COMFORT CARE. R CENTRAL LINE IN PLACE. OLD R FEMORAL LINE SITE WITH GAUZE C,D,I. SKIN TEARS TO B ARM, R ARM SKIN TEAR BLEEDING AND GAUZE DRESSING APPLIED. PULSE OX CHECKED ON FAMILY REQUEST AT 84%.
--- NOTE | 2023-11-16 05:23 | NUR ---
VALVE INSPECTOR SUMMARY PT IS ON COMFORT CARE AND FAMILY AT BEDSIDE T/O THE NIGHT. AT START OF SHIFT PT WAS RIGID/TENSE, BREATHING RATE INCREASED AND IRREGULAR, EYES OPEN BUT PT NOT RESPONDING TO VERBAL STIMULI. PT GIVEN 5MG OF MORPHINE AND 1MG ATIVAN AT START OF SHIFT. PT CONTINUED TO SHOW S/S OF DISCOMFORT AND ANXIETY. CONTINUED TO PROVIDED MEDICATIONS ORDERED. FAMILY REQUESTING REPEATEDLY TO CHECK PT'S OXYGEN LEVELS. REENFORCED EDUCATION ON DYING PROCESS AND OFFERED SUPPORT. CHECKED OXYGEN FAMILY REQUESTED. BY MORNING, O2 SAT READING AT 24%. PT BREATHING HAS REMAINED LABORED AND IRREGULAR T/O THE NIGHT. FAMILY MAKING WISHES KNOWN FOR PT TO PASS PEACFULLY AND TO MAKE PT COMFORTABLE. FAMILY IS REQUESTING PT BE TAKEN TO [facility] HOME UPON PASSING.
[2023-11-16] MEDS ORDERED: HYDROmorphone HCl/Pf 1MG SYR IV PRN (08:15)
--- NOTE | 2023-11-16 13:21 | NUR ---
FINAL DISCHARGE MR HARRINGTON HAD NO HEART BEAT OR RESPIRATIONS AT 1055HRS. DR PRO ACERTAINED AT BEDSIDE. FAMILY HAS BEEN WITH HIM ALL SHIFT UNTIL HIS PASSING. PT HAD INCREASED WORK OF BREATHING AND MOANS WITH BREATHING AND WAS MEDICATED TO KEEP HIM COMFORTABLE PER ASSESSMENT AND PER FAMILY/MD REQUEST.
== END 2023-11-16 10:55 | DRG 208 ==
LOC: ER 21:51 → ICUE 23:36 → MEDS 11-15 16:36
PROVIDERS: Emergency Medicine; Family Medicine Adult Medicine; ADMIT Student in an Organized Health Care Education/Training Program
PROC: 5A1945Z Respiratory Ventilation, 24-96 Consecutive Hours (ICD-10-PCS; principal; 2023-11-14)
PROC: 02HV33Z Insertion of Infusion Device into Superior Vena Cava, Percutaneous Approach (ICD-10-PCS; 2023-11-14)
PROC: B548ZZA Ultrasonography of Superior Vena Cava, Guidance (ICD-10-PCS; 2023-11-14)
PROC: 4A133R1 Monitoring of Arterial Saturation, Peripheral, Percutaneous Approach (ICD-10-PCS; 2023-11-14)
PROC: 3E033XZ Introduction of Vasopressor into Peripheral Vein, Percutaneous Approach (ICD-10-PCS; 2023-11-14)
DX: J69.0 Pneumonitis due to inhalation of food and vomit (principal); E87.20 Acidosis, unspecified; N17.9 Acute kidney failure, unspecified; N39.0 Urinary tract infection, site not specified; I69.354 Hemiplegia and hemiparesis following cerebral infarction affecting left non-dominant side; J18.9 Pneumonia, unspecified organism; T17.928A Food in respiratory tract, part unspecified causing other injury, initial encounter; I46.2 Cardiac arrest due to underlying cardiac condition; Z66 Do not resuscitate; Z51.5 Encounter for palliative care; I10 Essential (primary) hypertension; E78.5 Hyperlipidemia, unspecified; F17.210 Nicotine dependence, cigarettes, uncomplicated; D50.9 Iron deficiency anemia, unspecified; E87.6 Hypokalemia; E83.39 Other disorders of phosphorus metabolism; F10.10 Alcohol abuse, uncomplicated; F15.10 Other stimulant abuse, uncomplicated; R91.1 Solitary pulmonary nodule; E11.51 Type 2 diabetes mellitus with diabetic peripheral angiopathy without gangrene; Z88.8 Allergy status to other drugs, medicaments and biological substances; Z86.19 Personal history of other infectious and parasitic diseases; Z87.19 Personal history of other diseases of the digestive system; Z90.49 Acquired absence of other specified parts of digestive tract; Z95.820 Peripheral vascular angioplasty status with implants and grafts
CPT/HCPCS: 0241U; 36415; 36556; 36620; 51702; 70450; 71045; 71260; 80047; 80053; 81001; 82010; 82803; 82947; 83036; 83605; 83735; 83880; 84100; 84145; 84484; 85014; 85025; 87040; 87086; 92953; 93005; 93010; 93306; 93922; 94002; 94003; 96374-59; 99291-25; 99292; A9270; C1751; J0171; J0295; J1170; J1630; J1815; J1953; J2060; J2250; J2270; J2704; J3010; J3480; J7030; J7050; J7060; J7070; Q9967